=== PATIENT | female | born 1960 | race Caucasian/White ===

== ENCOUNTER 2022-06-18 09:53 | Day surgery (SDC) | payer BC ==
[~2022-06-18] VITALS: Ht 160 cm; Wt 71.1 kg
[~2022-06-18 09:53] MED LIST: Estradiol0.5 MG; HARVONI 90-4001 EACH; LOSA25; METF500
[2022-06-18] MEDS ORDERED: MULTI-VITAMIN1 EAC2 (10:27)
[2022-06-18] MEDS ORDERED: CALCIUM 500 MG1 EAC2 (10:27)
== END 2022-06-18 12:35 | disposition home or self-care (01) ==
LOC: ORSCSDS 09:53
PROVIDERS: Internal Medicine Gastroenterology
PROC: 0DBM8ZX Excision of Descending Colon, Via Natural or Artificial Opening Endoscopic, Diagnostic (ICD-10-PCS; principal; 2022-06-18 11:30)
DX: Z12.11 Encounter for screening for malignant neoplasm of colon (principal); Z86.010 Personal history of colon polyps; D37.4 Neoplasm of uncertain behavior of colon; K57.30 Diverticulosis of large intestine without perforation or abscess without bleeding; D12.4 Benign neoplasm of descending colon; Z86.19 Personal history of other infectious and parasitic diseases; Z87.891 Personal history of nicotine dependence; Z79.84 Long term (current) use of oral hypoglycemic drugs; Z79.899 Other long term (current) drug therapy
CPT/HCPCS: 82947; 88305; J2704; J7120

== ENCOUNTER → 2023-06-13 | Outpatient (CLI) | payer BC ==
[~2023-06-13] MED LIST changes: +CALCIUM 500 MG1 EAC2; +MULTI-VITAMIN1 EAC2
[2023-06-13 14:02] LABS: Creatinine, Urine Random 84.6 mg/dL (27.00-270.00)
[2023-06-13 14:04] LABS: Microalb/Creat Ratio UR, Rand 6.82 mg/g (0.000-30.000); Microalbumin, Random Urine 5.77 mg/L (0.000-20.000)
== END ==
LOC: LAB SHORT 10:05
PROVIDERS: Physician Assistant
DX: E11.59 Type 2 diabetes mellitus with other circulatory complications (principal); E11.69 Type 2 diabetes mellitus with other specified complication
CPT/HCPCS: 82043; 82570

== ENCOUNTER → 2024-06-09 | Outpatient (CLI) | payer BC, MEDICARE | LOC: LAB 07:33 → PLD 07:33 → LAB SHORT 07:33 | DX: N90.89 Other specified noninflammatory disorders of vulva and perineum (principal) | CPT/HCPCS: 88305 ==

== ENCOUNTER → 2024-08-03 | Outpatient (CLI) | payer BC, MEDICARE ==
[2024-08-03 21:40] LABS: Creatinine, Urine Random 45.2 mg/dL (27.00-270.00); Microalb/Creat Ratio UR, Rand 23.894 mg/g (0.000-30.000); Microalbumin, Random Urine 10.8 mg/L (0.000-20.000)
== END ==
LOC: LAB 15:24 → LAB SHORT 15:24
PROVIDERS: Physician Assistant
DX: E11.42 Type 2 diabetes mellitus with diabetic polyneuropathy (principal); E11.59 Type 2 diabetes mellitus with other circulatory complications; E11.69 Type 2 diabetes mellitus with other specified complication
CPT/HCPCS: 82043; 82570